=== PATIENT | female | born 1995 | race American Indian/Alaskan Native ===

== ENCOUNTER 2017-05-28 14:42 | Emergency (ER) | payer SELFPAY ==
[2017-05-28 17:54] LABS: Basophils % (Auto) 0.6 % (0.0-1.8); Eosinophils % (Auto) 0.1 % (0.0-4.3); Hematocrit 41.8 % (30.3-42.9); Hemoglobin 13.8 gm/dl (10.1-14.3); Mean Corpuscular HGB Conc 33 % (30-34); Mean Corpuscular Hemoglobin 27 pg (28-32); Mean Corpuscular Volume 81 fl (79-97); Platelet Count 284 K/mm3 (140-440); Red Blood Count 5.15 M/mm3 (3.65-5.03); Red Cell Distribution Width 14.8 % (13.2-15.2); White Blood Count 11.1 K/mm3 (4.5-11.0)
[2017-05-28 18:01] LABS: Anion Gap 19 mmol/L; BUN/Creatinine Ratio 13.33; Blood Urea Nitrogen 8 mg/dL (7-17); Calcium 9.5 mg/dL (8.4-10.2); Carbon Dioxide 25 mmol/L (22-30); Chloride 90.3 mmol/L (98-107); Glucose 89 mg/dL (65-100); Potassium 3.4 mmol/L (3.6-5.0); Sodium 131 mmol/L (137-145)
[2017-05-28 18:38] LABS: Bilirubin,Urine NEG (Negative); Blood,Urine NEG (Negative); Ketones,Urine 80 mg/dL (Negative); Leukocyte Esterase,Urine NEG (Negative); Mucus,Urine 3+ /HPF; Nitrite,Urine NEG (Negative)
[2017-05-28] MEDS ORDERED: NACL 0.9% 1000 ML 1,000 ML IV ONE (20:11)
[2017-05-28] MEDS ORDERED: REGLAN IV ONE (20:11)
--- NOTE | 2017-05-28 20:17 | Emergency Department Report ---
ED N/V/D HPI - General Chief complaint: Nausea/Vomiting/Diarrhea Stated complaint: 6 WKS PREG/NAUSEA/LIGHTHEADEDNESS Time Seen by Provider: 05/28/17 19:39 Source: patient Mode of arrival: Ambulatory Limitations: No Limitations - History of Present Illness Initial comments: This is a 21-year-old female A4 that is nontoxic or ill in appearance presents to ED with c/o of intermittent nausea and vomiting x2 weeks. Patient stated she believes she is 6 weeks . Patient denies having follow-up appointment with OBGYN. Patient states the vomit is content with food. Patient denies any CP, SOB, fever, chills, headache, numbness, constipation, dizziness, blurry vision, stiff neck, tingling, vaginal bleeding, abd pain, pelvic pain, dysuria, polyuria. Patient stated that she had constipation last month but is resolved currently. Patient also c/o of thick white discharge x1 week. Patient stated last menstrual period 04/07/2017. Patient states allergies to PCN. Denies any past medical history. MD complaint: nausea, vomiting -: Gradual, days(s) Description of Vomiting: food contents Associated Abdominal Pain: No Radiation: none Improves with: none Worsens with: none Associated Symptoms: nausea/vomiting. denies: myalgias, chest pain, cough, diaphoresis, fever/chills, headaches, loss of appetite, malaise, rash, dysuria, shortness of breath, syncope, weakness - Related Data Previous Rx's Medication Instructions Recorded Last Taken Type Doxylamine/Pyridoxine HCl 1 each PO BID #20 tablet. 05/28/17 Unknown Rx [Donnie Leroy 10-10 mg Tablet] Allergies Allergy/AdvReac Type Severity Reaction Status Date / Time Penicillins Allergy Rash Verified 05/28/17 20:25 Sulfa (Sulfonamide AdvReac Vomiting Verified 05/28/17 20:25 Antibiotics) ED Review of Systems ROS: Stated complaint: 6 WKS PREG/NAUSEA/LIGHTHEADEDNESS Other details as noted in HPI Constitutional: denies: chills, fever Eyes: denies: eye pain, eye discharge, vision change ENT: denies: ear pain, throat pain Respiratory: denies: cough, shortness of breath, wheezing Cardiovascular: denies: chest pain, palpitations Endocrine: no symptoms reported Gastrointestinal: denies: abdominal pain, nausea, diarrhea Genitourinary: denies: urgency, dysuria, discharge Musculoskeletal: denies: back pain, joint swelling, arthralgia Skin: denies: rash, lesions Neurological: denies: headache, weakness, paresthesias Psychiatric: denies: anxiety, depression Hematological/Lymphatic: denies: easy bleeding, easy bruising ED Past Medical Hx - Past Medical History Previous Medical History?: No - Surgical History Additional Surgical History: c section - Social History Smoking Status: Never Smoker Substance Use Type: None - Medications Home Medications: Home Medications Medication Instructions Recorded Confirmed Last Taken Type Doxylamine/Pyridoxine HCl 1 each PO BID #20 tablet. 05/28/17 Unknown Rx [Donnie Leroy 10-10 mg Tablet] ED Physical Exam - General Limitations: No Limitations General appearance: alert, in no apparent distress - Head Head exam: Present: atraumatic, normocephalic - Eye Eye exam: Present: normal appearance, PERRL, EOMI. Absent: scleral icterus, conjunctival injection, nystagmus, periorbital swelling, periorbital tenderness Pupils: Present: normal accommodation - ENT ENT exam: Present: normal exam, normal orophraynx, mucous membranes moist, TM's normal bilaterally, normal external ear exam - Neck Neck exam: Present: normal inspection, full ROM. Absent: tenderness, meningismus, lymphadenopathy, thyromegaly - Respiratory Respiratory exam: Present: normal lung sounds bilaterally. Absent: respiratory distress, wheezes, rales, rhonchi, stridor, chest wall tenderness, accessory muscle use, decreased breath sounds, prolonged expiratory - Cardiovascular Cardiovascular Exam: Present: regular rate, normal rhythm, normal heart sounds. Absent: bradycardia, tachycardia, irregular rhythm, systolic murmur, diastolic murmur, rubs, gallop - GI/Abdominal GI/Abdominal exam: Present: soft, normal bowel sounds. Absent: distended, tenderness, guarding, rebound, rigid, diminished bowel sounds, organomegaly, mass - Rectal Rectal exam: Present: deferred (as per patient), normal inspection - External exam: Present: normal external exam, other (Chaprone Liliana care transition mgr present). Absent: erythema, swelling, lesions, lacerations, ecchymosis, bleeding Speculum exam: Present: normal speculum exam, other (Chaprone Liliana care transition mgr present). Absent: erythema, vaginal discharge, cervical discharge, vaginal bleeding, foreign body, tissue, laceration Bi-manual exam: Present: normal bi-manual exam, other (Chaprone Liliana care transition mgr present). Absent: cervical motion tendernes, adnexal tenderness, adnexal mass, uterine enlargement, uterine tenderness - Extremities Exam Extremities exam: Present: normal inspection, full ROM, normal capillary refill. Absent: tenderness, pedal edema, joint swelling, calf tenderness - Back Exam Back exam: Present: normal inspection, full ROM. Absent: tenderness, CVA tenderness (R), CVA tenderness (L), muscle spasm, paraspinal tenderness, vertebral tenderness, rash noted - Neurological Exam Neurological exam: Present: alert, oriented X3, CN II-XII intact, normal gait, reflexes normal - Psychiatric Psychiatric exam: Present: normal affect, normal mood. Absent: depressed, agitated - Skin Skin exam: Present: warm, dry, intact, normal color. Absent: rash ED Course Vital Signs 05/28/17 17:23 Temperature 98.6 F Pulse Rate 92 H Respiratory 16 Rate Blood Pressure 131/93 O2 Sat by Pulse 100 Oximetry - Reevaluation(s) Reevaluation #1: 05/28/17 20:22 Patient is talking in full sentences with no signs of distress noted. Reevaluation #2: 05/28/17 22:30 Patient stated feels much better with no n/v. No signs of distress noted. Reevaluation #3: 05/28/17 22:31 By mouth challenge has been obtained with no symptoms or signs of vomiting or nausea. ED Medical Decision Making - Lab Data Result diagrams: 05/28/17 17:33 05/28/17 17:33 - Medical Decision Making Ed course: This is a 21-year-old female that presents with hyperemesis gravidarum 1- patient was examined by myself. Patient received NS 1000 ml with reglan. Patient states she feels much better after receiving Reglan. By mouth challenge has been successful with no signs symptoms of nausea or vomiting. 2- patient was referred to a [facility] with a follow-up within 24 hours or symptoms such as bleeding, increased abdominal pain, fever, chills, nausea or vomiting that is uncontrolled with prescription return to emergency room as soon as possible. 3- at time time of discharge, the patient does not seem toxic or ill in appearance. No acute signs of distress noted. Patient agrees to discharge treatment plan of care. No further questions noted by the patient. 4- patient was also instructed to follow-up in 5 days in medical records For results of gonorrhea/chlamydia Critical care attestation.: If time is entered above; I have spent that time in minutes in the direct care of this critically ill patient, excluding procedure time. ED Disposition Clinical Impression: Hyperemesis gravidarum Disposition: - TO HOME OR SELFCARE Is pt being admited?: No Does the pt Need Aspirin: No Condition: Stable Instructions: (ED), Hyperemesis Gravidarum (ED) Additional Instructions: Take Diclegis as prescribed: Initial: Two tablets at bedtime on day 1 and 2; if symptoms persist, take 1 tablet in morning and 2 tablets at bedtime on day 3; if symptoms persist, may increase to 1 tablet in morning, 1 tablet mid-afternoon , and 2 tablets at bedtime on day 4 (maximum: doxylamine 40 mg/pyridoxine 40 mg (4 tablets) per day). Follow-up within 24 hours or symptoms such as bleeding, increased abdominal pain , fever, chills, nausea or vomiting that is uncontrolled with prescription return to emergency room as soon as possible. Prescriptions: Doxylamine/Pyridoxine HCl [[address] Dr 10-10 mg Tablet] 1 each PO BID #20 tablet. Referrals: PRIMARY CAREMD [Primary Care Provider] - 3-5 Days ASHLIE MOORE JR, MD [Staff Physician] - 3-[address] [facility] [Outside] - 3-5 Days [facility] [Outside] - 3-5 Days Forms: Work/School Release Form(ED)
--- NOTE | 2017-05-28 22:23 | Ultrasound Report ---
FINAL REPORT EXAM: US OB TRANSVAGINAL HISTORY: confirmation TECHNIQUE: Ultrasound obstetrical transvaginal PRIORS: None. FINDINGS: There is gestational sac present within the uterus Mean sac diameter is 23.3 millimeters There is pole present with crown-rump length of 0.24 centimeters estimated gestational age 5 weeks 6 days with estimated delivery January 22, 2018 There is a small hypoechoic focus adjacent to the gestational sac 0.4 x 0.8 x 0.9 centimeters consistent with a small subchorionic hemorrhage Right ovary is 4.4 x 1.5 x 2.1 centimeters. There is a 1.5 centimeter right ovarian cyst present left ovary is 3.9 x 2.9 x 3.2 centimeters 2.8 centimeter left ovarian cyst noted. IMPRESSION: Single live intrauterine gestation estimated at 5 weeks 6 days Small subchorionic hemorrhage Bilateral ovarian cysts
--- NOTE | 2017-05-28 22:24 | Ultrasound Report ---
FINAL REPORT EXAM: US OB \T\lt; = 14 WEEKS FETUS HISTORY: confirmation TECHNIQUE: Ultrasound obstetrical transabdominal PRIORS: None. FINDINGS: FINDINGS: There is gestational sac present within the uterus Mean sac diameter is 23.3 millimeters There is pole present with crown-rump length of 0.24 centimeters estimated gestational age 5 weeks 6 days with estimated delivery January 22, 2018 There is a small hypoechoic focus adjacent to the gestational sac 0.4 x 0.8 x 0.9 centimeters consistent with a small subchorionic hemorrhage Right ovary is 4.4 x 1.5 x 2.1 centimeters. There is a 1.5 centimeter right ovarian cyst present left ovary is 3.9 x 2.9 x 3.2 centimeters 2.8 centimeter left ovarian cyst noted. IMPRESSION: Single live intrauterine gestation estimated at 5 weeks 6 days Small subchorionic hemorrhage Bilateral ovarian cysts
[2017-05-29 01:43] VITALS: BP 119/74
== END 2017-05-29 01:43 | disposition home or self-care (01) ==
LOC: ED 14:42
DX: O21.0 Mild hyperemesis gravidarum (principal); Z3A.01 Less than 8 weeks gestation of pregnancy; Z88.0 Allergy status to penicillin; Z88.2 Allergy status to sulfonamides
CPT/HCPCS: 36415; 76801; 76817; 80048; 81001; 84702; 84703; 85025; 86850; 86900; 86901; 87210; 87591; 96361; 96374; 99285; J2765; J7030